=== PATIENT | male | born 1995 | race Caucasian/White ===

== ENCOUNTER 2019-07-05 13:12 | Emergency (ER) | payer MEDICAID ==
[~2019-07-05] VITALS: Ht 175.3 cm; Wt 78.0 kg
[2019-07-05 13:16] VITALS: Ht 175.3 cm; Wt 78.0 kg
[2019-07-05 16:29] VITALS: BP 126/65
== END 2019-07-05 16:29 | disposition home or self-care (01) ==
LOC: ED 13:12
DX: S61.012A Laceration without foreign body of left thumb without damage to nail, initial encounter (principal); W20.8XXA Other cause of strike by thrown, projected or falling object, initial encounter; Y93.89 Activity, other specified; Y92.89 Other specified places as the place of occurrence of the external cause; Y99.8 Other external cause status
CPT/HCPCS: 90715; J2001; Q0092